=== PATIENT | female | born 1985 ===

== ENCOUNTER 2023-09-05 16:08 | Emergency (ER) | payer OTHER, SELFPAY ==
[2023-09-05 16:20] VITALS: BP 112/78
--- NOTE | 2023-09-05 18:23 | ED.SKININJ ---
HPI-Injury
General
Chief Complaint: Skin Surface Trauma
Source: patient
Exam Limitations: none
Time Seen by Provider: 09/05/23 18:00
Travel History
Have you had any contact with someone who has COVID-19?: No
Do you have any symptoms of coronavirus? Fever > 100 degrees, chills, cough, shortness of breath, sore throat, loss of taste or smell, muscle aches, or headache?: No
History of Present Illness-Injury
Is this injury a work related problem?: No
Is pt an associate of [facility]?: No
Initial Injury comments:
This is a 37 year old female that comes in with c/o a laceration to the right third finger. States that she was not thinking and touched the chain saw blade. States that she cut the tip of the right third finger. States that she doesn't know when
her last Tetanus shot was. Denies any fever, chills, nausea, vomiting, diarrhea,
Past History
Past History
ED Past Medical History: Other (Migraine headaches)
ED Past Surgical History: Gynecological (Ovarian cyst removed) and Other (Repair of pyloric stenosis)
Social History
Tobacco: Non-smoker
Alcohol: Occasional
Drug: None
Personal:
Living: with family
Review of Systems
Review of Systems
All Other Systems: ROS reviewed and negative except as documented in HPI and ROS
Constitutional: Reports no symptoms; Denies fever or chills
EENT: Reports no symptoms
Respiratory: Reports no symptoms; Denies cough or trouble breathing
Cardiac: Reports no symptoms; Denies chest pain
ABD/GI: Reports no symptoms; Denies abdominal pain, nausea, vomiting or diarrhea
: Reports no symptoms
Musculoskeletal: Reports no symptoms
Skin: Reports other (laceration right third finger)
Neurological: Reports no symptoms; Denies dizzy or headache
Psychiatric: Reports no symptoms
Skin Exam
Laceration
Right Distal Third Finger:
Length in cm: 2
Orientation: vertical
Type of Laceration: simple
Any active bleeding?: no active bleeding
Distal skin color and temperature: normal-warm & good color
Normal distal neurovascular exam: Yes
Range of motion: full
Phy Exam
General Physical Exam
General Presentation: well appearing and no apparent distress
General age: appears stated age
General Skin: warm and dry
General Habitus: normal
General Mental: alert
General Hydration: appears well hydrated
Eye Exam
Eye Exam: EOMI
Skin Exam
Skin Exam: normal color, warm/dry, no rash, no petechia and laceration (Right third distal finger involving the nail with slight nail removal on the medial aspect areas of abrasion that are not suturable. )
Psychiatric Exam
Psychiatric Exam: normal mood/affect
Course
Orders/Labs/Results
Orders:
Orders
09/05/23 18:23
Tetanus/Diphth/Acelpertussis [Adacel] 0.5 ml IM .ONCE ONE
Vital Signs
Initial and Last Documented VS:
Initial Vital Signs
Temp Pulse Resp BP Pulse Ox
97.8 F 77 18 112/78 98
09/05/23 16:20 09/05/23 16:20 09/05/23 16:20 09/05/23 16:20 09/05/23 16:20
Last Documented Vital Signs
Temp Pulse Resp BP Pulse Ox
97.8 F 77 18 112/78 98
09/05/23 16:20 09/05/23 16:20 09/05/23 16:20 09/05/23 16:20 09/05/23 16:20
Procedures
Laceration Closure
Right Distal Third Finger:
Status of Wound: dirty
Size of Wound in cm: 2
Description of Wound Edges: ragged
Preparation: cleaned with saline
Anesthesia: 1% Lidocaine
Revision/Debridement: routine- no revision
Wound exploration: explored to base- no FB
Type of Closure: single layer closure
Skin Closure Material: 3-0 nylon
Number of sutures: 2
MDM/Problems Addressed
Differential Diagnosis Includes:
Laceration
MDM/Problems Addressed:
This is a 37 year old female that comes in with c/o laceration to the right third finger after she touched a chain saw.
Will suture lacearation and give Tetnus.
Chronic conditions affecting care:
NA
Acute Exacerbation and/or Progression of Chronic Illness:
NA
*Pulse Oximetry
Patient hypoxic: no
*EKG
Interpreted by ED Provider?: NA
Rate: EKG- N/A
*Refractory Technician Interpretation
Rate: Refractory Technician- N/A
*Critical Care Note
Total Time (30-74mins, 75-104mins- exclusive of procedures): Not Applicable
ED Attending Note
-
Portions of this chart may have been created with voice recognition software.� Occasional wrong word or��sound alike� substitutions may have occurred due to the inherent limitations of voice recognition software.
Discharge Plan
Departure
Patient Disposition: Home (Routine Discharge)
Date of Disposition: 09/05/23
Time of Disposition: 18:30
Patient with high blood pressure during this ER visit?: No
Condition: Good
Covid-19: Not Applicable
Discharge Problem:
Laceration of finger of right hand
Instructions: Laceration Repair With Stitches (DC)
Prescriptions:
No Action
Vitamins
1 tab PO DAILY
acetaminophen 325 MG tablet
650 mg PO Q4HPRN PRN (Reason: mild pain) 0RF
sennosides-docusate sodium 1 TABLET tablet
1 tab PO DAILYPRN PRN (Reason: constipation) Qty: 30 0RF
ferrous sulfate [FeroSul] 325 MG tablet
325 mg PO BID Qty: 60 0RF
ibuprofen 600 MG tablet
600 mg PO Q6HPRN PRN (Reason: moderate pain/cramps) Qty: 60 0RF
metoclopramide HCl 10 MG tablet
10 mg PO ONCE PRN (Reason: headache) Qty: 5 0RF
Referrals:
Ya Aragon MD [Family Provider] - Follow up in 10 days
Activity Restrictions/Additional Instructions:
As discussed, you have two suture placed. Please keep your finger dry for the next 24 hours. After this you may genly pat the area with warm soapy water. Follow up with the family doctor in 7-10 days for suture removal. Please keep this area covered
with a bandage. It will take time for your nail to grow back. IF YOU HAVE ANY REDNESS, DRAINAGE OR YOU HAVE ANY OTHER CONCERNS PLEASE RETURN TO THE EMERGENCY ROOM.
Interventions
Interventions:
*General Assessment Last Done: 09/05/23 16:20
*ED COVID-19 Vaccine History Last Done: 09/05/23 16:20
ED-Skin Assessment Last Done: 09/05/23 18:29
Discharge Date and Time
Print Language: TELUGU
[2023-09-05] MEDS: ADACEL 0.5 ML IM (18:40)
== END 2023-09-05 18:48 | disposition home or self-care (01) ==
LOC: EMR 16:08
PROVIDERS: EMERGENCY PHYSICIAN Emergency Medicine; FAMILY PHYSICIAN Family Medicine
DX: S61.212A Laceration without foreign body of right middle finger without damage to nail, initial encounter (principal); W29.3XXA Contact with powered garden and outdoor hand tools and machinery, initial encounter; Z91.040 Latex allergy status; Z91.048 Other nonmedicinal substance allergy status
CPT/HCPCS: 99282; 90471; 12001; 90715